=== PATIENT | female | born 1970 | race Caucasian/White ===

== ENCOUNTER 2017-01-30 10:27 | Emergency (ER) | payer OTHER ==
[2017-01-30] MEDS ORDERED: ASPIRIN 81 MG (BABY) CHEWABLE TABLET PO ONE (10:47)
[2017-01-30] MEDS ORDERED: NORMAL SALINE 10 ML SYRINGE FLUSH IVP PRN (10:47)
--- NOTE | 2017-01-30 10:50 | EKG ---
[address] [address] Measurements Intervals [place] Rate: 81 P: 56 ME: 143 QRS: 60 QRSD: 105 T: 62 QT: 400 QTc: 438 Interpretive Statements SINUS RHYTHM Compared to ECG 10/23/2013 09:58:12 No significant changes Electronically Signed On 01-30-17 16:02:31 MDT by Rigoberto Barrett [email or web address]
[2017-01-30 10:55] LABS: BASOPHILS # (AUTO) 0.06 10*3/UL; BASOPHILS % (AUTO) 0.7 % (0-1); EOSINOPHILS # (AUTO) 0.13 10*3/UL; EOSINOPHILS % (AUTO) 1.5 % (0-8); HEMATOCRIT 43.7 % (37.0-47.0); HEMOGLOBIN 14.9 g/dL (12.0-16.0); LYMPHOCYTES # (AUTO) 1.85 10*3/uL; MEAN CORPUSCULAR HEMOGLOBIN 30.7 PG (27-31); MEAN CORPUSCULAR HGB CONC 34.1 g/dL (33-37); MEAN CORPUSCULAR VOLUME 90.1 FL (81-99); MEAN PLATELET VOLUME 9.5 FL (7.4-12.2); MONOCYTES # (AUTO) 0.48 10*3/UL (0.3-0.8); MONOCYTES % (AUTO) 5.6 % (5-15); NEUTROPHILS % (AUTO) 70.1 % (50-80); RED BLOOD COUNT 4.85 10^6/uL (4.20-5.40)
[2017-01-30] MEDS ORDERED: Sodium Chloride 0.9% 1,000 ML PRIMARY IV ONE (10:58)
[2017-01-30 11:00] LABS: PLATELET MORPHOLOGY COMMENT NORMAL MORPHOLOGY (NORM); RBC MORPHOLOGY COMMENT NORMAL MORPHOLOGY (NORM); WBC MORPHOLOGY COMMENT NORMAL MORPHOLOGY (NORM)
[2017-01-30 11:11] LABS: BLOOD UREA NITROGEN 12 mg/dL (7-22); BUN/CREATININE RATIO 17.14 (6-20); EST GLOMERULAR FILTRATION > 60 (>60 ml/min/1.73m(2)); SERUM ALBUMIN 3.6 g/dL (3.5-4.8)
[2017-01-30 11:15] LABS: CREATINE KINASE MB 0.64 NG/ML (0.00-5.00)
[2017-01-30 11:21] VITALS: RESP 15; TEMP 97.4
[2017-01-30 11:22] LABS: TROPONIN I < 0.012 ng/mL (< 0.040)
--- NOTE | 2017-01-31 04:34 | PDOC ---
Chest Pain HPI - General Chief Complaint: Chest Pain Stated Complaint: RIGHT SIDE CHEST PAIN Date Seen by Provider: 01/30/17 Time Seen by Provider: 10:35 Source: Patient Exam Limitations: POSITIVE: No limitations Treatment Prior to Arrival: REPORTS: None Nurse's Notes Reviewed & Considered: Yes - History of Present Illness Initial Comments: The patient is a 46-year-old female. She states that for the past year she's been having intermittent episodes of "sharp"pain over the right anterior thorax as well as chest wall tenderness over this area. She has seen her primary care provider for this problem and was told that she has "pleurisy". No left-sided chest pain. No radiation. No fevers. No cough. She states that sometimes her discomfort is exacerbated by deep inspiration. She states the discomfort is never severe, but did seem to be somewhat worse today. Body Location Affected: REPORTS: Chest Timing: REPORTS: Intermittent Duration: <24 hours Severity: Moderate Persistent/Worse since (date): 01/30/17 Persistent/Worse since (time): 08:00 Context: REPORTS: Rest Quality: REPORTS: Sharpness, Tenderness (Tenderness on direct palpation right anterior thorax) Radiation: REPORTS: None Associated Symptoms: DENIES: Nausea, Vomiting, Diaphoresis, Shortness of Breath , Hurts to Breathe, Palpitations, Productive Cough (blood), Productive Cough ( sputum), Weakness, Dizziness Modifying Factors: improves with: Movement, Pressing On Area Similar Symptoms Previously: Yes (for about the past year intermittently) Recently seen/treated/hospitalized: No Any Prior Injuries Related to Current Complaint?: No - Patient Home Medications Home Medications: Home Medications Calcium Carbonate [Calcium] 1 tab PO QD tab 02/20/14 Cholecalciferol (Vitamin D3) [Vitamin D] 1 cap PO QD cap 02/20/14 Levothyroxine Sodium 1 tab PO DAILY tab 02/20/14 Multivitamin [Multi Vitamin Daily] 1 tab PO QD tab 02/20/14 Lactobacillus Combination No.4 [Probiotic] 1 each PO QD cap 10/10/15 Dexlansoprazole [Dexilant] 30 mg PO DAILY 01/30/17 Vit B12/Lm-Folate Ca/Vit B6/B2 [Enfolast Tablet] 1 each PO DAILY 01/30/17 - Patient Allergies Allergies/Adverse Reactions: Allergies Allergy/AdvReac Type Severity Reaction Status Date / Time No Known Allergies Allergy Verified 01/30/17 10:42 Past Medical History - heen HEENT History: Other (please comment) Additional HEENT History: WEARS GLASSES Cardiovascular History: Denies History Respiratory History: Denies History Gastrointestinal History: GERD, Other (please comment) Additional Gastrointestinal History: GASTRIC BYPASS SURGERY 2005, CHOLECYSTECTOMY 2008 Genitourinary History: Denies History Endocrine History: Hypothyroidism Musculoskeletal History: Denies History Prosthesis or Implant: No Neurological History: Denies History Blood Disorders: Denies History Psychiatric History: Denies History History of Sexually Transmitted Diseases: No Female Reproductive History: Other (please comment) Additional Female Reproductive History: UTERINE ABLATION Cancer History: Denies History In Past Year Been Physically Harmed or Verbally Threatened: No (PER PATIENT) History of MDRO: No History of Other Communicable Diseases: No Tobacco Use: Never Smoker Alcohol Use: Occasionally Substance Use Type: None Previous Surgical History: Yes Type / Date of Surgery: GASTRIC BYPASS 2005/ CHOLECYSTECTOMY 2008/ CERVICAL FUSION 2012/, UTERINE ABLATION, TONSILLECTOMY, RIGHT KNEE SCOPE Anesthesia Reactions: No Malignant Hyperthermia: No Family History of Malignant Hyperthermia: No Significant Family History: Heart disease Past Medical History Reviewed: Reviewed - No Changes ROS - Limitations ROS Limitations: No Limitations Constitution: REPORTS: Denies Symptoms Cardiovascular: REPORTS: Chest Pain Respiratory: REPORTS: Denies Resp Symptoms Neurological: REPORTS: Denies Neuro Symptoms Gastrointestinal: REPORTS: Denies GI Symptoms Endocrine: REPORTS: Denies Symptoms Musculoskeletal: REPORTS: Other (Chest wall pain as above; see diagram) Genitourinary: REPORTS: Denies Symptoms Eyes: REPORTS: Denies Symptoms ENT: REPORTS: Denies Symptoms Skin: REPORTS: Denies Skin Symptoms Lympathic: REPORTS: Denies Lympathic Symptoms Immunologic: POSITIVE: Denies Symptoms Psychiatric: POSITIVE: Denies Psych Symptoms Chest Pain PE - General Appearance General Appearance: REPORTS: Alert, Cooperative, No Acute Distress, No Evidence of Trauma - HEENT HEENT: POSITIVE: Head Inspection Nml, Eyes Inspection Nml, Ears Inspection Nml, Nose Inspection Nml, Oral/Dental Inspect. Nml, Pharynx Inspect. Nml, PERRL, EOMI - Neck Neck: REPORTS: Normal Inspection, No Carotid Bruit - Respiratory Respiratory: REPORTS: No Respiratory Distress, Breath Sounds Normal. DENIES: Chest Non-Tender - Cardiovascular Cardiovascular: REPORTS: Regular Rate and Rhythm, Heart Sounds Normal, Equal Pulses, Strong Pulses, No Murmur, No Gallop, No Friction Rub, No JVD Peripheral Pulses: Radial (R): 2+, Radial (L): 2+ - Abdomen Abdomen: Soft: (All Quadrants), Normal Bowel Sounds: (All Quadrants), Denies Tenderness: (All Quadrants), No Splenomegaly: (All Quadrants), No Hepatomegaly: (All Quadrants), No Guarding: (All Quadrants), No Rebound: (All Quadrants), No Palpable Pulse: (All Quadrants), No Palpabale Mass: (All Quadrants), No Distention: (All Quadrants), No Rigidity: (All Quadrants) - Skin Skin: REPORTS: Intact, Normal For Race, Warm, Dry, No Rash - Extremities Extremity: Non-Tender: (All Extremities), Normal ROM: (All Extremities), Normal Inspection: (All Extremities) - Neurological / Psychological Neurological: POSITIVE: Oriented X3, bacon slicer Normal As Tested, Motor Normal, Sensation Normal, 5, 6 Images - Complete Complete: 1 - Area of described pain and pain on palpation Chest Pain Progress - Results Reviewed by me Xrays/CTs/US Reviewed by me: Yes Discussed with Radiologist: No Radiology Findings: Portable chest x-ray normal Lab Results Reviewed: Yes (including normal troponin and d-dimer) Lab Results:: Laboratory Results 01/30/17 Range/Units 10:37 WBC 8.56 (4.8-10.8) 10^3/uL RBC 4.85 (4.20-5.40) 10^6/uL Hgb 14.9 (12.0-16.0) g/dL Hct 43.7 (37.0-47.0) % MCV 90.1 (81-99) FL MCH 30.7 (27-31) PG MCHC 34.1 (33-37) g/dL RDW Std Deviation 43.4 (39-50) fL RDW Coeff of Armin 13.6 (11.5-14.5) % Plt Count 327 (140-350) 10*3/uL MPV 9.5 (7.4-12.2) FL Immature Gran % (Auto) 0.5 (0-5) % Neut % (Auto) 70.1 (50-80) % Lymph % (Auto) 21.6 (10-50) % [place] % (Auto) 5.6 (5-15) % Eos % (Auto) 1.5 (0-8) % Baso % (Auto) 0.7 (0-1) % Immature Gran # (Auto) 0.04 10*3/UL Neut # (Auto) 6.00 10*3/UL Lymph # (Auto) 1.85 10*3/uL [place] # (Auto) 0.48 (0.3-0.8) 10*3/UL Eos # (Auto) 0.13 10*3/UL Baso # (Auto) 0.06 10*3/UL WBC Morphology Comment Normal morphology (NORM) Plt Morphology Comment Normal morphology (NORM) RBC Morph Comment Normal morphology (NORM) D-Dimer 0.37 (0.00-0.59) mg/L Sodium 140 (135-145) meq/L Potassium 3.8 (3.8-5.2) meq/L Chloride 106 (98-112) meq/L Carbon Dioxide 26 (23-33) meq/L Anion Gap 8 (5-20) BUN 12 (7-22) mg/dL Creatinine 0.7 (0.50-1.20) mg/dL Estimated GFR > 60 (>60 ml/min/1.73m(2)) BUN/Creatinine Ratio 17.14 (6-20) Glucose 81 (78-110) mg/dL Calculated Osmolality 288.0 (267-292) mOsm/kg Calcium 9.0 (8.7-10.7) mg/dL Total Bilirubin 1.1 (0.3-1.2) mg/dL AST 21 (8-39) IU/L ALT 26 (9-52) IU/L Alkaline Phosphatase 69 (38-126) IU/L CK-MB (CK-2) 0.64 (0.00-5.00) NG/ML Troponin I < 0.012 (< 0.040) ng/mL Total Protein 6.2 (6.1-8.0) g/dL Albumin 3.6 (3.5-4.8) g/dL Globulin 2.7 (2.50-4.10) g/dL Albumin/Globulin Ratio 1.30 (1.3-2.0) mg/g EKG Interpreted/Reviewed By Me:: Yes EKG Interpretation:: POSITIVE: Normal Sinus Rhythm, Normal Rate, Normal Intervals, Normal [place], Normal QRS, Normal ST/T - Patient's Progress Pain Medication Addressed: POSITIVE: Yes (Recommended Advil or Aleve) School/Work Release Addressed: POSITIVE: Not Applicable Re-Examine Time: 11:30 Status: POSITIVE: Unchanged, Re-Examined Quality Measure Initiative: CP/AMI: POSITIVE: EKG, ASA - Consult Counseled: POSITIVE: Patient, RE: Lab Results, RE: Radiology Results, RE: DX, RE : Need for F/U Patient Care Time - Estimated PCT Patient Care Time (In Minutes): 35 Vital Signs - VS Reviewed Vital Signs Reviewed: Yes Discharge Clinical Impression: Chest wall pain Discharge Disposition: Discharged to Home Condition: Stable Patient Instructions Given at Discharge: Noncardiac Chest Pain (ED) Additional Instructions: I do not believe that your right sided chest pain his coming from your heart or lungs. This is what is known as "chest wall pain". Sometimes the application of warm moist compresses to the chest wall is helpful. You may also take Aleve or Advil for your discomfort. I believe you're going to be fine. Follow-up with your primary care provider. Return here anytime if condition worsens in any way. Follow Up With: VILLA CHAIREZ [Primary Care Provider] - (Instructions as above. Follow-up with your primary care provider. Return here as necessary.)
--- NOTE | 2017-01-31 21:31 | DI ---
AP CHEST X-RAY, 01/30/2017 10:47 AM : Clinical History: Chest pain. Previous Exam: None at this facility. There is no acute soft tissue or bony abnormality. Heart size is normal. Lungs are clear. Mediastinal structures are normal. There are multiple 2-3 mm nodules in the right apex and these were present on the previous film. These have remained stable for an interval of 53 months indicating they represent benign granulomas. Reading: Normal chest x-ray. Old granulomatous disease.
== END 2017-01-30 11:50 | disposition home or self-care (01) ==
LOC: ER 10:27
DX: R07.89 Other chest pain (principal)
CPT/HCPCS: 71010; 80053; 82553; 84484; 85025; 85379; 93005; 93010; 99284; J7030

== ENCOUNTER → 2017-02-05 | Outpatient (CLI) | payer OTHER ==
[2017-02-05 17:29] LABS: FREE T4 (FREE THYROXINE) 1.59 ng/dL (0.93-1.71)
== END ==
LOC: MOB LAB 15:34
PROVIDERS: ATTEND Physician Assistant Medical
DX: E03.9 Hypothyroidism, unspecified (principal)
CPT/HCPCS: 36415; 84439; 84443

== ENCOUNTER → 2017-03-01 | Outpatient (CLI) | payer OTHER ==
--- NOTE | 2017-03-01 11:02 | DI ---
MAMMO U/L DIAGNOSTIC,03/01/2017 10:01 AM: Clinical History: Density within the left deep one third of the breast Previous Exam: February 24, 2017, screening mammogram from 2013 and 2008 Findings: Breast tomosynthesis is obtained of the [in the MLO projection and an exaggerated CC projection, and demonstrate a small reniform mass corresponding with the abnormality on the screening mammogram. This measures 5 mm in long axis and demonstrates a small focal fatty hilar notch on the CC and MLO projec tions. There is no suspicious cluster of microcalcifications nor areas of architectural distortion. Impression: Well-circumscribed 5 mm reniform mass with a focal fatty hilum corresponding with the abnormality see n on the prior exam. Is a benign finding. Recommend annual screening. Self breast examination was discussed with the patient and she was instructed to return in the interv al if there is any palpable lesion. Overall imaging assessment: BI-RADS II: Benign findings
== END ==
LOC: MAMMO 09:50
PROVIDERS: ATTEND Physician Assistant Medical
DX: R92.8 Other abnormal and inconclusive findings on diagnostic imaging of breast (principal)
CPT/HCPCS: G0206; G0279

== ENCOUNTER → 2017-03-17 | Outpatient (CLI) | payer OTHER | LOC: LAB 15:34 | PROVIDERS: ATTEND Physician Assistant Medical | DX: E03.9 Hypothyroidism, unspecified (principal) | CPT/HCPCS: 36415; 84443 ==

== ENCOUNTER 2019-03-16 09:17 | Observation (INO) ==
[2019-03-16] MEDS ORDERED: CALCIUM CARBONATE 500 MG (TUMS) CHEWABLE TABLET PO PRN (09:41)
[2019-03-16] MEDS ORDERED: LIDOCAINE W/ SODIUM BICARB 0.5 ML SYR SUBD PRN (09:41)
[2019-03-16] MEDS ORDERED: Esomeprazole DR 20mg Capsule PO SCH (09:45)
[2019-03-16] MEDS ORDERED: Spironolactone Tab 25 MG TAB PO SCH (09:45)
[2019-03-16] MEDS ORDERED: ESTRADIOL 1 GM VAGINAL SCH (09:45)
[2019-03-16] MEDS ORDERED: OLOPATADINE HCL EACH EYE SCH (09:45)
[2019-03-16] MEDS ORDERED: LOSARTAN 25 MG TABLET PO SCH (09:45)
--- NOTE | 2019-03-16 10:40 | PDOC ---
HPI - History of Present Illness History of Present Illness: The very nice 48-year-old female who was sent as an outpatient for stress test this morning she did have a treadmill stress test with the nuclear medicine the re was a lot of artifact while she was running on the treadmill she did achieve about 7 minutes but tired out in the recovery phase she shows some sloping ST depression of the in lead 2 and V5 which is not their baseline and continued to have chest pain and pressures I recommended we admit the patient to rule her out and continue the stress test as an inpatient patient gracefully agreed. Past Medical History Medical History: No medical history she is on multivitamins Tobacco Use: Never Smoker In the Past 12 Months, Have Used or Abuse Any of the Following Substance: None Medication / Allergies Home Medications: Home Medications Medication Instructions Recorded Confirmed Calcium Carbonate [Calcium] 1 tab PO QD tab 02/20/14 03/02/19 Cholecalciferol (Vitamin D3) 1 cap PO QD cap 02/20/14 03/02/19 [Vitamin D] Multivitamin [Multi Vitamin Daily] 1 tab PO QD tab 02/20/14 03/02/19 Lactobacillus Combination No.4 1 ea PO QD cap 10/10/15 03/02/19 [Probiotic] Cyanocobalamin (Vitamin B-12) 1,000 mcg PO 02/05/17 03/02/19 [Liquid B12] olopatadine 0.1 % eye drops 1 drp OP BID #5 ml 09/09/17 03/02/19 estradiol 0.01% (0.1 mg/gram) 1 g VAGINAL 3XW #42.5 g 06/16/18 03/02/19 vaginal cream esomeprazole magnesium 20 mg 20 mg PO QDAY #30 cap 10/28/18 03/02/19 capsule,delayed release losartan 25 mg tablet See Rx Instructions .ROUTE 11/17/18 03/02/19 .COMPLEX #30 tablet Synthroid 88 mcg tablet See Rx Instructions .ROUTE 01/02/19 03/02/19 .COMPLEX #30 tablet NS triamcinolone acetonide 0.025 % 1 applic TOPICAL QHS #15 g 03/02/19 03/02/19 topical cream spironolactone 25 mg tablet 25 mg PO QAM #30 tab 03/03/19 Allergies/Adverse Reactions: Allergies Allergy/AdvReac Type Severity Reaction Status Date / Time No Known Allergies Allergy Verified 03/02/19 10:39 Review of Systems - Review of Systems All Systems: Reviewed & No Additional Complaints Except as Stated - Respiratory Respiratory: DENIES: Negative System Review, Cough, Sputum, Dyspnea At Rest, Dyspnea with Exertion, Pleuritic Pain, Hemoptysis, Wheezing, Other, See HPI - Cardiovascular Cardiovascular: REPORTS: Chest Pain Exam - Vitals Vital Signs: Vital Signs Temperature 98.4 F Temperature Source Temporal Artery Scan Pulse Rate [Pulse Oximeter] 88 Respiratory Rate 17 Blood Pressure [Left Arm] 128/52 Pulse Ox 97 Oxygen Delivery Method Room Air Height 5 ft 3 in Weight 186 lb 9.6 oz - General General Appearance: No Acute Distress, Cooperative - Eye Eye Exam: POSITIVE: Normal Appearance, PERRL, EOMI, No Scleral Icterus - Neck Neck Exam: Normal Inspection, Full ROM, No Tenderness, No Lymphadenopathy, No Thyromegaly, JVP is not Raised - Respiratory Respiratory Exam: POSITIVE: Clear to Auscultation - Bilaterally, Breathing Non Labored, Normal To Percussion, Normal to Percussion and Palpation - Cardiovascular Cardiovascular Exam: POSITIVE: RRR, No Murmur, No Clicks, No Gallops, No Rubs, PMI Non-Displaced - GI/Abdominal GI/Abdominal Exam: POSITIVE: Normal Bowel Sounds, Non Tender, Non Distended, Soft, No Masses, No Hepatomegaly, No Splenomegaly, No Organomegaly - Extremities Extremities Exam: POSITIVE: Normal Inspection, Full ROM, Normal Capillary Refill, No Clubbing Present, No Edema Present, No Cyanosis Present, Negative López's sign, Dosalis Pedis Pulses - Stong & Regular Results - Labs CBC and BMP: 03/16/19 10:28 03/16/19 10:28 Assessment and Plan - Patient Problems (1) Atypical chest pain Current Visit: No Status: Chronic Comment: Abnormality on stress test and chest pain no shortness of breath we'll rule out with serial troponin enzymes finish stress test in the hospital we'll obtain CT of the chest since the patient has been having a sharp pain that radi ates to her back Code(s): R07.89 - Other chest pain
[2019-03-16 10:45] LABS: BASOPHILS # (AUTO) 0.03 10*3/UL; BASOPHILS % (AUTO) 0.4 % (0-1); EOSINOPHILS # (AUTO) 0.08 10*3/UL; EOSINOPHILS % (AUTO) 1.2 % (0-8); Hematocrit [HCT] 43.2 % (37.0-47.0); Hemoglobin [HGB] 14.3 g/dL (12.0-16.0); LYMPHOCYTES # (AUTO) 1.18 10*3/uL; MEAN CORPUSCULAR HEMOGLOBIN 31.4 PG (27-31); MEAN CORPUSCULAR HGB CONC 33.1 g/dL (33-37); MEAN CORPUSCULAR VOLUME 94.7 FL (81-99); MEAN PLATELET VOLUME 9.8 FL (7.4-12.2); MONOCYTES # (AUTO) 0.38 10*3/UL (0.3-0.8); MONOCYTES % (AUTO) 5.6 % (5-15); NEUTROPHILS # (AUTO) 5.11 10*3/UL; NEUTROPHILS % (AUTO) 75.1 % (50-80); RED BLOOD COUNT 4.56 10^6/uL (4.20-5.40)
[2019-03-16 10:50] LABS: BLOOD UREA NITROGEN 12 mg/dL (7-22); BUN/CREATININE RATIO 17.14 (6-20); PLATELET MORPHOLOGY COMMENT NORMAL MORPHOLOGY (NORM); RBC MORPHOLOGY COMMENT NORMAL MORPHOLOGY (NORM); WBC MORPHOLOGY COMMENT NORMAL MORPHOLOGY (NORM)
[2019-03-16 10:51] LABS: CHOL/HDL RATIO 2.93 RATIO (0-4.0); SERUM ALBUMIN 3.5 g/dL (3.5-4.8); SERUM CHOLESTEROL 173 mg/dL (120-200)
[2019-03-16 11:33] LABS: CKMB RATIO 0.22 %
--- NOTE | 2019-03-16 15:01 | DI ---
CT CTA Chest Non-Coronary WWO 03/16/2019 9:45 AM History: [facility] DI ^YES ^shortness of breath Comparison: Chest x-ray from 01/30/2017. Procedure: CT angiography of the pulmonary arteries was performed after the administration of 65 mL o f Ultravist 370 intravenous contrast. Findings: There is normal opacification of the pulmonary arteries with no evidence of filling defect. Evaluation of the lungs demonstrates no consolidation, pneumothorax, or pleural effusion. No pulmona ry nodules are noted. There is a calcified granuloma in the posterior aspect of the superior basal se gment of the left lower lobe. The airways are patent with no endobronchial lesion. There is no mediastinal or hilar lymphadenopathy. The aorta and branch vessels demonstrate normal cou rse and caliber. Heart size is within normal limits with no pericardial effusion. The thyroid exhibit s normal CT morphology. The visualized upper abdominal structures are notable for surgical clips in the gallbladder fossa. Mclean rgical material in the left upper quadrant associated with loops of bowel is most likely associated w ith bariatric surgery. The osseous structures are normal for age. There is no evidence of acute or healing rib fractures. Impression: 1. No main or segmental pulmonary embolism.
[2019-03-16] MEDS: NITROGLYCERIN 0.4 MG SL TAB (BOTTLE OF 3) SL PRN ×3 (15:11→16:44)
[2019-03-16 16:30] VITALS: BP 124/71; RESP 18; TEMP 98.1; O2SAT 98
[2019-03-16] MEDS ORDERED: Heparin Drip 25,000 UNIT/500 ML BAG IV SCH (17:30)
[2019-03-16] MEDS ORDERED: Nitroglycerin Drip 25,000 MCG/250 ML BOTTLE IV SCH (17:30)
--- NOTE | 2019-03-16 17:40 | EKG ---
[address] [address] Measurements Intervals [place] Rate: 68 P: 59 MA: 139 QRS: 71 QRSD: 98 T: 78 QT: 419 QTc: 437 Interpretive Statements SINUS RHYTHM Compared to ECG 01/30/2017 10:29:14 No significant changes Electronically Signed On 03-17-19 08:31:59 MDT by Braeden Cormier MD [id number]
--- NOTE | 2019-03-16 20:48 | DCSUMMARY ---
Hospitalization Summary Hospital Course: Final Discharge Diagnosis: Non-STEMI/unstable angina Diagnostic Data, Laboratory Data, and Procedures of Signifigance: Laboratory Results 03/16/19 03/16/19 03/16/19 10:28 10:28 10:28 WBC 6.80 RBC 4.56 Hgb 14.3 Hct 43.2 MCV 94.7 MCH 31.4 H MCHC 33.1 RDW Std Deviation 45.9 RDW Coeff of Armin 13.6 Plt Count 243 MPV 9.8 Immature Gran % (Auto) 0.3 Neut % (Auto) 75.1 Lymph % (Auto) 17.4 [place] % (Auto) 5.6 Eos % (Auto) 1.2 Baso % (Auto) 0.4 Immature Gran # (Auto) 0.02 Neut # (Auto) 5.11 Lymph # (Auto) 1.18 [place] # (Auto) 0.38 Eos # (Auto) 0.08 Baso # (Auto) 0.03 WBC Morphology Comment Normal morphology Plt Morphology Comment Normal morphology RBC Morph Comment Normal morphology APTT D-Dimer 155 Sodium 144 Potassium 3.5 L Chloride 105 Carbon Dioxide 27 Anion Gap 12 BUN 12 Creatinine 0.7 Estimated GFR > 60 BUN/Creatinine Ratio 17.14 Glucose 65 L Calculated Osmolality 295.0 H Calcium 8.4 L Total Bilirubin 0.7 AST 39 ALT 25 Alkaline Phosphatase 61 Total Creatine Kinase CK-MB (CK-2) CK-MB (CK-2) Ratio Troponin I Total Protein 6.1 Albumin 3.5 Globulin 2.5 Albumin/Globulin Ratio 1.40 Triglycerides 91 Cholesterol 173 LDL Cholesterol, Calc 95.800 VLDL Cholesterol 18 HDL Cholesterol 59 Cholesterol/HDL Ratio 2.93 TSH Free T4 03/16/19 03/16/19 03/16/19 10:28 10:28 10:28 WBC RBC Hgb Hct MCV MCH MCHC RDW Std Deviation RDW Coeff of Armin Plt Count MPV Immature Gran % (Auto) Neut % (Auto) Lymph % (Auto) [place] % (Auto) Eos % (Auto) Baso % (Auto) Immature Gran # (Auto) Neut # (Auto) Lymph # (Auto) [place] # (Auto) Eos # (Auto) Baso # (Auto) WBC Morphology Comment Plt Morphology Comment RBC Morph Comment APTT D-Dimer Sodium Potassium Chloride Carbon Dioxide Anion Gap BUN Creatinine Estimated GFR BUN/Creatinine Ratio Glucose Calculated Osmolality Calcium Total Bilirubin AST ALT Alkaline Phosphatase Total Creatine Kinase 329 H CK-MB (CK-2) 0.72 CK-MB (CK-2) Ratio 0.22 Troponin I 0.016 Total Protein Albumin Globulin Albumin/Globulin Ratio Triglycerides Cholesterol LDL Cholesterol, Calc VLDL Cholesterol HDL Cholesterol Cholesterol/HDL Ratio TSH 0.302 Free T4 1.36 03/16/19 03/16/19 15:48 17:54 WBC RBC Hgb Hct MCV MCH MCHC RDW Std Deviation RDW Coeff of Armin Plt Count MPV Immature Gran % (Auto) Neut % (Auto) Lymph % (Auto) [place] % (Auto) Eos % (Auto) Baso % (Auto) Immature Gran # (Auto) Neut # (Auto) Lymph # (Auto) [place] # (Auto) Eos # (Auto) Baso # (Auto) WBC Morphology Comment Plt Morphology Comment RBC Morph Comment APTT 32.0 D-Dimer Sodium Potassium Chloride Carbon Dioxide Anion Gap BUN Creatinine Estimated GFR BUN/Creatinine Ratio Glucose Calculated Osmolality Calcium Total Bilirubin AST ALT Alkaline Phosphatase Total Creatine Kinase CK-MB (CK-2) CK-MB (CK-2) Ratio Troponin I 0.042 H Total Protein Albumin Globulin Albumin/Globulin Ratio Triglycerides Cholesterol LDL Cholesterol, Calc VLDL Cholesterol HDL Cholesterol Cholesterol/HDL Ratio TSH Free T4 History and Physical pertinent to Admission: Course of Hospitalization: Is a very nice 48-year-old female who comes in for an outpatient stress test today he has been having chest pains for a year still had some chest pains and pressure after the stress test today I also saw some abnormality of some ST depression in V2 and V5 was admitted to the hospital to be ruled out. Her second troponin came back positive also she had some stable angina which was relieved partially by sublingual nitroglycerin. Discuss case with cardiology Dr Jay Luna [facility] which accepted the patient transfer recommend starting nitro drip and heparin drip for possible catheter for I discussed this with the patient and her in detail which agreed with the plan. EKG revealed no ST-T wave elevation or inversion On the date of discharge, the patient was examined: Gen.: No acute distress, alert, nontoxic Heart: Regular rate and rhythm, no murmurs, clicks, gallops, or rubs Lungs: Clear to auscultation bilaterally, breathing is nonlabored Abdomen/GI: Normal tones on auscultation, soft, nontender, nondistended Musculoskeletal/extremities: No clubbing, cyanosis, or edema Vitals reviewed and are listed below Vital Signs (24 hrs) 03/16/19 09:48 03/16/19 11:15 03/16/19 15:00 Temperature 98.4 F 97.8 F Pulse Rate 91 Pulse Rate Left Finger 91 Pulse Rate Pulse Oximeter 88 87 Pulse Rate left hand] Respiratory Rate 17 17 Blood Pressure [Left Arm] 128/52 Blood Pressure [Right Arm] 115/81 Pulse Ox 97 99 Pulse Ox [Left Finger] 96 Pulse Ox [left hand] 03/16/19 15:25 03/16/19 16:28 Temperature 98.1 F Pulse Rate Pulse Rate [Left Finger] Pulse Rate [Pulse Oximeter] 74 Pulse Rate [left hand] 94 Respiratory Rate 18 Blood Pressure [Left Arm] Blood Pressure [Right Arm] 124/71 Pulse Ox 98 Pulse Ox [Left Finger] Pulse Ox [left hand] 94 Assessment and Plan: 1. As per discharge assessments above 2. Disposition: [facility] 3. Condition on discharge, stable and improved. 4. Diet: regular diet 5. Activities: resume normal activities 6. Follow-Up: 1. [PCP] 2. 7. Medications at the Time of Discharge: Home Medications Medication Instructions Recorded Confirmed Calcium Carbonate [Calcium] 1 tab PO QD tab 02/20/14 03/16/19 Cholecalciferol (Vitamin D3) 1 cap PO QD cap 02/20/14 03/16/19 [Vitamin D] Multivitamin [Multi Vitamin Daily] 1 tab PO QD tab 02/20/14 03/16/19 Lactobacillus Combination No.4 1 ea PO QD cap 10/10/15 03/16/19 [Probiotic] Cyanocobalamin (Vitamin B-12) 1,000 mcg PO DAILY 02/05/17 03/16/19 [Liquid B12] olopatadine 0.1 % eye drops 1 drp OP BID #5 ml 09/09/17 03/16/19 estradiol 0.01% (0.1 mg/gram) 1 g VAGINAL 3XW #42.5 g 06/16/18 03/16/19 vaginal cream esomeprazole magnesium 20 mg 20 mg PO QDAY #30 cap 10/28/18 03/16/19 capsule,delayed release losartan 25 mg tablet See Rx Instructions .ROUTE 11/17/18 03/16/19 .COMPLEX #30 tablet Synthroid 88 mcg tablet See Rx Instructions .ROUTE 01/02/19 03/16/19 .COMPLEX #30 tablet NS spironolactone 25 mg tablet 25 mg PO QAM #30 tab 03/03/19 03/16/19 Ascorbic Acid [Vitamin C] 1 tab PO Q48H 03/16/19 03/16/19 Ferrous Gluconate 1 tab PO Q48H 03/16/19 03/16/19 8. Time, care, counseling and coordination of care for this discharge is greater than 30 minutes. Exam - Vitals Vital Signs: Vital Signs Temperature 98.1 F Temperature Source Temporal Artery Scan Pulse Rate [Pulse Oximeter] 74 Pulse Rate [Left Finger] 91 Pulse Rate [left hand] 94 Pulse Rate 91 Respiratory Rate 18 Blood Pressure [Right Arm] 124/71 Blood Pressure [Left Arm] 128/52 Pulse Ox [Left Finger] 96 Pulse Ox [left hand] 94 Pulse Ox 98 Oxygen Delivery Method [Left Room Air Finger] Oxygen Delivery Method [left Room Air hand] Oxygen Delivery Method Room Air Height 5 ft 3 in Weight 186 lb 9.6 oz Patient Problems - Patient Problem List (1) Atypical chest pain Status: Chronic Code(s): R07.89 - Other chest pain Category: Medical
[2019-03-16] MEDS ORDERED: POTASSIUM CHLORIDE 20 MEQ TAB PO SCH (21:00)
[2019-03-17] MEDS ORDERED: ASPIRIN 81 MG (BABY) CHEWABLE TABLET PO SCH (09:00)
[2019-03-17] MEDS ORDERED: LEVOTHYROXINE 88 MCG TABLET PO SCH (10:15)
== END 2019-03-16 18:45 | disposition short-term general hospital (02) ==
LOC: MED/SURG → PREINTOOBSV 09:32
PROVIDERS: ADMIT Internal Medicine; ATTEND Internal Medicine